=== PATIENT | male | born 1960 | race Caucasian/White ===

== ENCOUNTER 2018-01-14 12:02 | Emergency (ER) | payer MEDICAID ==
[2018-01-14 12:37] LABS: BILIRUBIN,URINE NEGATIVE (NEGATIVE); GLUCOSE, URINE (UA) NEGATIVE (NEGATIVE); KETONES,URINE (UA) NEGATIVE (NEGATIVE); LEUKOCYTE ESTERASE, URINE NEGATIVE (NEGATIVE); NITRITE,URINE NEGATIVE (NEGATIVE); OCCULT BLOOD,URINE TRACE-INTA (NEGATIVE); PROTEIN,URINE NEGATIVE (NEGATIVE); UROBILINOGEN,URINE 0.2 (NORMAL) E.U./dL (NORMAL)
[2018-01-14 12:38] LABS: CLARITY,URINE CLEAR (CLEAR)
[2018-01-14 12:47] LABS: BASOPHILS # (AUTO) 0.1 10^3/uL (0.0-0.1); BASOPHILS % (AUTO) 1.1 %; EOSINOPHILS # (AUTO) 0.1 10^3/uL (0.0-0.7); EOSINOPHILS % (AUTO) 1.4 %; HGB - HEMOGLOBIN 14.8 g/dL (14.0-18.0); LYMPHOCYTES # (AUTO) 1.1 10^3/uL (1.5-3.5); LYMPHOCYTES % (AUTO) 14.9 %; MEAN CORPUSCULAR HEMOGLOBIN 33.1 pg (27.0-31.0); MEAN CORPUSCULAR HGB CONC 34.9 g/dL (32.0-36.0); MEAN PLATELET VOLUME 8.4 fL (7.4-11.4); MONOCYTES # (AUTO) 0.6 10^3/uL (0.0-1.0); MONOCYTES % (AUTO) 8.3 %; NEUTROPHILS # (AUTO) 5.6 10^3/uL (1.5-6.6); NEUTROPHILS % (AUTO) 74.3 %; PLT - PLATELET COUNT 242 10^3/uL (130-450); RED BLOOD COUNT 4.46 10^6/uL (4.70-6.10); RED CELL DISTRIBUTION WIDTH 12.7 % (12.0-15.0); WHITE BLOOD COUNT 7.5 x10^3/uL (4.8-10.8)
[2018-01-14 13:00] LABS: ALBUMIN 4.3 g/dL (3.2-5.5); ALBUMIN/GLOBULIN RATIO 1.3 (1.0-2.2); BILIRUBIN,TOTAL 1.1 mg/dL (0.2-1.0); CALCIUM 9.6 mg/dL (8.5-10.3); CREATININE 0.9 mg/dL (0.6-1.2); TOTAL PROTEIN 7.7 g/dL (6.7-8.2)
[2018-01-14] MEDS ORDERED: ACETAMINOPHEN 1,000 MG/100 ML 100 ML IV STA (14:48)
[2018-01-14] MEDS ORDERED: ONDANSETRON 4 MG/2 ML VIAL IVP STA (14:48)
[2018-01-14] MEDS ORDERED: SODIUM CHLORIDE 0.9% 1,000 ML IV ONE (14:50)
--- NOTE | 2018-01-14 14:53 | ED Physician Documentation ---
History of Present Illness - Stated complaint Stated Complaint: ABD PX - Chief complaint Chief Complaint: Abd Pain - Additonal information Additional information: hx from pt healthy 57 m no prior surgeries drank some bad milk 4 days ago now 3 days of diffuse upper / lower abd discomfort with intense nausea no fever no diarrhea no bloody BM Review of Systems Constitutional: denies: Fever Throat: denies: Sore throat Cardiac: denies: Chest pain / pressure Respiratory: denies: Dyspnea GI: reports: Abdominal Pain, Nausea. denies: Diarrhea, Bloody / black stool PD PAST MEDICAL HISTORY - Present Medications Home Medications: Ambulatory Orders Medication Instructions Recorded Confirmed Ondansetron Odt [Zofran] 4 mg TL Q6H PRN #10 tablet 01/14/18 Sucralfate 1 gm PO ACHS #120 tablet 01/14/18 raNITIdine [Zantac] 150 mg PO BID #60 tablet 01/14/18 - Allergies Allergies/Adverse Reactions: Allergies Allergy/AdvReac Type Severity Reaction Status Date / Time No Known Drug Allergies Allergy Verified 01/14/18 12:09 PD ED PE NORMAL - Vitals Vital signs reviewed: Yes - HEENT HEENT: Atraumatic - Neck Neck: Supple, no meningeal sign - Cardiac Cardiac: RRR - Respiratory Respiratory: No respiratory distress - Abdomen Abdomen: Soft, Other (diffuse TTP LUQ more than RUQ more than LLQ, isabelle palp but does not feel enlarged, no peritoneal signs) - Derm Derm: Normal color - Neuro Neuro: Alert and oriented X 3 Results - Vitals Vitals: Vital Signs - 24 hr 01/14/18 01/14/18 01/14/18 12:06 14:30 17:03 Temperature 36.6 C 36.2 C L Heart Rate 68 52 L 47 L Respiratory 18 14 16 Rate Blood Pressure 167/109 H 167/101 H 175/94 H O2 Saturation 96 99 99 Oxygen O2 Source Room air - Labs Labs: Laboratory Tests 01/14/18 01/14/18 01/14/18 12:30 12:42 12:42 WBC 7.5 RBC 4.46 L Hgb 14.8 Hct 42.4 MCV 95.0 H MCH 33.1 H MCHC 34.9 RDW 12.7 Plt Count 242 MPV 8.4 Neut # (Auto) 5.6 Lymph # (Auto) 1.1 L [place] # (Auto) 0.6 Eos # (Auto) 0.1 Baso # (Auto) 0.1 Absolute Nucleated RBC 0.00 Nucleated RBC % 0.0 Sodium 135 Potassium 4.0 Chloride 100 L Carbon Dioxide 27 Anion Gap 8.0 BUN 12 Creatinine 0.9 Estimated GFR (MDRD) 87 L Glucose 110 H Calcium 9.6 Total Bilirubin 1.1 H AST 46 H ALT 35 Alkaline Phosphatase 79 Total Protein 7.7 Albumin 4.3 Globulin 3.4 Albumin/Globulin Ratio 1.3 Lipase 31 Urine Color YELLOW Urine Clarity CLEAR Urine pH 7.0 Ur Specific [place] 1.020 Urine Protein NEGATIVE Urine Glucose (UA) NEGATIVE Urine Ketones NEGATIVE Urine Occult Blood TRACE-INTA Urine Nitrite NEGATIVE Urine Bilirubin NEGATIVE Urine Urobilinogen 0.2 (NORMAL) Ur Leukocyte Esterase NEGATIVE Ur Microscopic Review NOT INDICATED Urine Culture Comments NOT INDICATED - Rads (name of study) CT AP Radiology: See rad report (NACPD) PD MEDICAL DECISION MAKING - ED course ED course: labs normal except slightly elevated bili CT normal bili raises concern for GB dz but nl on CT and pain / TTP is more on left side most TTP LUQ consider gastritis / PUD will dc on trial zantac carafate and zofran and fup PMD for a recheck and if not better referral for GB sono and EGD also pt does drink about beers a day which could be the cause of abn LFTs - pt advsied to cut down - he will d/[facility] - Sepsis Event Vital Signs: Vital Signs - 24 hr 01/14/18 01/14/18 01/14/18 12:06 14:30 17:03 Temperature 36.6 C 36.2 C L Heart Rate 68 52 L 47 L Respiratory 18 14 16 Rate Blood Pressure 167/109 H 167/101 H 175/94 H O2 Saturation 96 99 99 Oxygen O2 Source Room air Departure - Departure Disposition: 01 Home, Self Care Clinical Impression: Abdominal pain Qualifiers: Abdominal location: generalized Qualified Code(s): R10.84 - Generalized abdominal pain Condition: Good Instructions: ED PUD Vs Gastritis Prescriptions: Ondansetron Odt [Zofran] 4 mg TL Q6H PRN #10 tablet PRN Reason: Nausea / Vomiting raNITIdine [Zantac] 150 mg PO BID #60 tablet Sucralfate 1 gm PO ACHS #120 tablet Comments: Your labs were fine except for two slightly elevated liver tests - and your pain was more over the stomach and spleen region The CT scan was fine - no bowel infection/ perforation / infection, no aneurysm , no gallstones or kidney stones, no pancreas inflammation. Given the reassuring work up, I think your symptoms may be due to inflammation of your stomach called gastritis or even an ulcer. I think it is safe for you to go home I have prescribed medications to ease your symptoms and help your stomach heal. If you are not better by next week, please follow up with your PMD to discuss getting an ultrasound of your gallbladder and a referral to the surgeons for a scope of your stomach Return to the ER of worse. Avoid spicy foods, alcohol, motrin and other NSAIDS And avoid alcohol and tylenol since some of your liver tests are elevated And please have your PMD recheck your liver function when you are feeling better as well
[2018-01-14] MEDS ORDERED: IOPAMIDOL-300 100 ML VIAL ONE (16:19)
[2018-01-14] MEDS ORDERED: IOPAMIDOL-300 100 ML VIAL IVP ONE (16:27)
--- NOTE | 2018-01-14 16:58 | CT Report ---
Procedure Date: 01/14/2018 Accession Number: [id number] / [id number] Procedure: CT - Abdomen/Pelvis W/ CPT Code: FULL RESULT: EXAM: CT ABDOMEN AND PELVIS EXAM DATE: 01/14/2018 04:38 PM. CLINICAL HISTORY: Abdominal pain. COMPARISONS: None. TECHNIQUE: Routine helical CT imaging was performed through the abdomen and pelvis. IV contrast: ISOVUE 300 100mL. Enteric contrast: No. Reconstructions: Coronal and sagittal. In accordance with CT protocol optimization, one or more of the following dose reduction techniques were utilized for this exam: automated exposure control, adjustment of mA and/or KV based on patient size, or use of iterative reconstructive technique. FINDINGS: Lung Bases: Unremarkable. Liver: Normal. No masses. Gallbladder/Bile Ducts: Unremarkable. Spleen: Normal. Pancreas: Normal. Adrenal Glands: Normal. Kidneys: Normal. No masses or hydronephrosis. Peritoneal Cavity/Bowel: Normal. No free fluid, free air or adenopathy. No masses or acute inflammatory process. The appendix is well visualized and normal. Pelvic Organs: Normal. The bladder and visualized pelvic organs are within normal limits. Vasculature: No acute findings. Bones: No acute findings. IMPRESSION: No acute findings. [facility]
[2018-01-14] MEDS ORDERED: FAMOTIDINE 20 MG/50 ML 50 ML IV ONE (17:34)
[2018-01-14] MEDS ORDERED: LIDOCAINE VISCOUS 2% 15 ML UDC MM STA (17:34)
[2018-01-14] MEDS ORDERED: MAG HYDROX/AL HYDROX/SIMETH 30 ML UDC PO STA (17:34)
[2018-01-14 18:58] VITALS: BP 176/107
== END 2018-01-14 18:58 | disposition home or self-care (01) ==
LOC: ED 12:02
DX: R10.84 Generalized abdominal pain (principal)
CPT/HCPCS: 36415; 74177; 80053; 81003; 83690; 85025; 96365; 96366; 96375; 99283; A9270; J0131; Q9967; 81001; 87086